=== PATIENT | female | born 1930 | race Caucasian/White ===

== ENCOUNTER 2019-11-10 03:23 | Emergency (ER) | payer MEDICARE ==
[~2019-11-10] VITALS: Ht 165.1 cm; Wt 50.0 kg
[2019-11-10] MEDS ORDERED: LABETALOL HCL 20MG/4ML CARPUJECT IV ONE (03:45)
[2019-11-10 04:17] LABS: BASOPHILS % 0.5 % (0.0-2.0); EOSINOPHILS % 1.1 % (0.0-5.0); HEMATOCRIT. 40.9 % (36.0-48.0); HEMOGLOBIN. 13.8 g/dL (12.0-16.0); LYMPHOCYTES % 29.7 % (20.0-50.0); MEAN CORPUSCULAR HEMOGLOBIN 30.4 pg (28.0-32.0); MEAN PLATELET VOLUME 8.2 fl (7.4-10.4); MONOCYTES % 5.4 % (2.0-8.0); NEUTROPHILS % 63.3 % (40.0-76.0); PLATELET 321 x1000/uL (130-400); RED BLOOD CELL COUNT 4.55 mill/uL (4.2-5.4); RED CELL DISTRIBUTION WIDTH 15.7 % (11.6-14.6)
[2019-11-10 04:23] LABS: CHLORIDE 104 mEq/L (98-107)
[2019-11-10 04:25] LABS: D-DIMER 2.11 mg/L FEU (<0.50); PARTIAL THROMBOPLASTIN TIME 25.6 sec (23.4-31.0); PROTHROMBIN TIME 10.4 sec (9.6-11.0)
[2019-11-10] MEDS: HYDRALAZINE 20MG/ML VIAL IV PRN (10:11)
[2019-11-10 10:27] LABS: BG BASE EXCESS 0.2 mmol/L (-2.0-2.0); BG CARBOXYHEMOGLOBIN 0.3 % (0.5-1.5); BG DEOXYHEMOGLOBIN 1.1 % (0.0-5.0); BG FRACTION INSPIRED OXYGEN 100; BG HCO3 ACT 28.6 mmol/L (22.0-26.0); BG METHEMOGLOBIN 1.4 % (0.0-1.5); BG OXYGEN SATURATION 98.9 % (92.0-98.5); BG OXYHEMOGLOBIN 97.2 % (94.0-97.0); BG PCO2 62.7 mmHg (35.0-45.0); BG PH 7.277 (7.350-7.450); BG PO2 217.7 mmHg (75.0-100.0); BG SAMPLE SITE RIGHT RADIAL; BG TOTAL HEMOGLOBIN 14.6 g/dL (12.0-18.0); BG VENT MODE MASK - NRB
[2019-11-10 13:11] LABS: BG BASE EXCESS 1.7 mmol/L (-2.0-2.0); BG BILEVEL POS AIRWAY PRESSURE 15/5; BG CARBOXYHEMOGLOBIN 0.2 % (0.5-1.5); BG DEOXYHEMOGLOBIN 1.4 % (0.0-5.0); BG FRACTION INSPIRED OXYGEN 40; BG HCO3 ACT 27.2 mmol/L (22.0-26.0); BG METHEMOGLOBIN 0.2 % (0.0-1.5); BG OXYGEN SATURATION 98.6 % (92.0-98.5); BG OXYHEMOGLOBIN 98.2 % (94.0-97.0); BG PCO2 46.1 mmHg (35.0-45.0); BG PH 7.388 (7.350-7.450); BG PO2 132.6 mmHg (75.0-100.0); BG SAMPLE SITE RIGHT RADIAL; BG TOTAL HEMOGLOBIN 13.3 g/dL (12.0-18.0); BG VENT MODE MASK - BIPAP; BG VENT RATE 18 set
[2019-11-10] MEDS ORDERED: HYDROCODONE/ACETAMINOPHEN 5/325MG TABLET PO PRN (15:00)
[2019-11-10] MEDS ORDERED: NA PHOS,M-B/NA PHOS,DI-BA ENEMA 118ML PR PRN (15:00)
[2019-11-10] MEDS ORDERED: HYDRALAZINE 20MG/ML VIAL IV PRN (15:00)
[2019-11-10] MEDS ORDERED: IPRATROPIUM/ALBUTEROL 0.5-3(2.5)MG/3ML NEB NEB PRN (15:00)
[2019-11-10] MEDS ORDERED: ONDANSETRON HCL 4MG/2ML INJ IV PRN (15:00)
[2019-11-10] MEDS ORDERED: CLONIDINE 0.1MG TABLET PO PRN (15:00)
[2019-11-10] MEDS ORDERED: SODIUM CHLORIDE 0.45% 1,000 ML IV SCH (15:00)
[2019-11-10] MEDS ORDERED: ACETAMINOPHEN 650MG SUPP PR PRN (15:00)
[2019-11-10] MEDS ORDERED: ACETAMINOPHEN 325MG TABLET PO PRN (15:00)
[2019-11-10] MEDS ORDERED: GUAIFENESIN 200MG/10ML SUGAR FREE UDC PO PRN (15:00)
[2019-11-10] MEDS ORDERED: LORAZEPAM 2MG/ML CPJ IV PRN (15:00)
[2019-11-10] MEDS ORDERED: DEXTROSE 50% WATER 50ML SYRINGE IV PRN (15:00)
[2019-11-10] MEDS ORDERED: DOCUSATE SODIUM 100MG CAPSULE PO PRN (15:00)
[2019-11-10] MEDS ORDERED: MAGNESIUM/ALUMINUM HYDROXIDE/SIMETHICONE 30ML UDC PO PRN (15:00)
[2019-11-10] MEDS ORDERED: DIPHENHYDRAMINE 50MG/ML VIAL IV PRN (15:00)
[2019-11-10] MEDS ORDERED: LORAZEPAM 0.5MG TABLET PO PRN (15:00)
[2019-11-10] MEDS ORDERED: MORPHINE SULFATE 2 MG/ML CPJ (NOT FOR IM USE) IV PRN (15:00)
[2019-11-10] MEDS ORDERED: ENOXAPARIN 60MG/0.6ML SYR SUBCUT SCH (16:00)
[2019-11-10] MEDS ORDERED: AZITHROMYCIN 500 MG in DEXT 5% WATER 250 ML IV NR (16:00)
[2019-11-10] MEDS: FAMOTIDINE 20MG/2ML VIAL IV SCH (16:06)
[2019-11-10] MEDS: CEFTRIAXONE 1 G PREMIX 50 ML IV SCH (16:06)
[2019-11-10 16:13] LABS: BG BASE EXCESS 1.1 mmol/L (-2.0-2.0); BG BILEVEL POS AIRWAY PRESSURE 15/8; BG DEOXYHEMOGLOBIN 1.2 % (0.0-5.0); BG FRACTION INSPIRED OXYGEN 40; BG HCO3 ACT 26.5 mmol/L (22.0-26.0); BG METHEMOGLOBIN 0.3 % (0.0-1.5); BG OXYGEN SATURATION 98.8 % (92.0-98.5); BG OXYHEMOGLOBIN 98.5 % (94.0-97.0); BG PCO2 45.2 mmHg (35.0-45.0); BG PH 7.386 (7.350-7.450); BG PO2 140.2 mmHg (75.0-100.0); BG SAMPLE SITE RIGHT RADIAL; BG TOTAL HEMOGLOBIN 12.8 g/dL (12.0-18.0); BG VENT MODE MASK - BIPAP
[2019-11-10] MEDS: INSULIN LISPRO 100 UNITS/ML SUBCUT SCH (17:00)
[2019-11-10] MEDS: BLOOD SUGAR DIAGNOSTIC STRIP TEST SCH ×2 (17:00→21:00)
[2019-11-10 17:05] LABS: CLARITY URINE CLEAR (CLEAR); COLOR URINE YELLOW (YELLOW); KETONES URINE NEGATIVE (NEGATIVE); LEUKOCYTE ESTERASE URINE TRACE (NEGATIVE); NITRITE URINE NEGATIVE (NEGATIVE); OCCULT BLOOD URINE 2+ (NEGATIVE); PROTEIN URINE 2+ (NEGATIVE); SPECIFIC GRAVITY URINE 1.019 (1.005-1.030); UROBILINOGEN URINE 0.2 E.U./dL (0.2-1.0)
[2019-11-10] MEDS: METHYLPREDNISOLONE SOD SUCC 40 MG/ML VIAL IV SCH (18:14)
[2019-11-11 01:09] LABS: CREATINE KINASE MB FRACTION 1.8 ng/mL (0.5-3.6)
[2019-11-11] MEDS: IPRATROPIUM/ALBUTEROL 0.5-3(2.5)MG/3ML NEB NEB SCH ×2 (02:40→08:13)
[2019-11-11 05:02] LABS: BASOPHILS % 0.2 % (0.0-2.0); HEMOGLOBIN. 11.4 g/dL (12.0-16.0); LYMPHOCYTES % 10.9 % (20.0-50.0); MEAN CORPUSCULAR HEMOGLOBIN 29.9 pg (28.0-32.0); MEAN CORPUSCULAR VOLUME 89.5 fL (81.0-99.0); MEAN PLATELET VOLUME 7.8 fl (7.4-10.4); MONOCYTES % 3.7 % (2.0-8.0); NEUTROPHILS % 85.2 % (40.0-76.0); PLATELET 233 x1000/uL (130-400); RED CELL DISTRIBUTION WIDTH 15.1 % (11.6-14.6)
[2019-11-11 05:06] LABS: CHLORIDE 104 mEq/L (98-107)
[2019-11-11 05:16] LABS: CREATINE KINASE 73 IU/L (26-192)
[2019-11-11 05:17] LABS: T4 FREE 0.86 ng/dL (0.76-1.46)
[2019-11-11 05:19] LABS: CREATINE KINASE MB FRACTION 1.9 ng/mL (0.5-3.6)
[2019-11-11] MEDS: METHYLPREDNISOLONE SOD SUCC 40 MG/ML VIAL IV SCH (05:58)
[2019-11-11] MEDS: BLOOD SUGAR DIAGNOSTIC STRIP TEST SCH (06:20)
[2019-11-11] MEDS: INSULIN LISPRO 100 UNITS/ML SUBCUT SCH (07:00)
[2019-11-11] MEDS: HYDRALAZINE 20MG/ML VIAL IV PRN (08:15)
[2019-11-11] MEDS ORDERED: AZITHROMYCIN 250 MG in DEXT 5% WATER 250 ML IV SCH (09:00)
[2019-11-11] MEDS ORDERED: ENOXAPARIN 30MG/0.3ML SYR SUBCUT SCH (09:00)
[2019-11-11] MEDS: FAMOTIDINE 20MG/2ML VIAL IV SCH (09:02)
[2019-11-11] MEDS: CEFTRIAXONE 1 G PREMIX 50 ML IV SCH (09:02)
[2019-11-11 09:49] LABS: BG BASE EXCESS -3.5 mmol/L (-2.0-2.0); BG CARBOXYHEMOGLOBIN 0.3 % (0.5-1.5); BG FRACTION INSPIRED OXYGEN 28; BG METHEMOGLOBIN 0.3 % (0.0-1.5); BG OXYHEMOGLOBIN 94.4 % (94.0-97.0); BG PCO2 31.2 mmHg (35.0-45.0); BG PH 7.425 (7.350-7.450); BG PO2 71.1 mmHg (75.0-100.0); BG SAMPLE SITE RIGHT BRACHIAL; BG VENT MODE NASAL CANNULA
[2019-11-11 11:00] VITALS: BP 142/55
== END 2019-11-11 11:13 | disposition left against medical advice (07) ==
LOC: ER 03:23 → UNDOADMIN 04:51 → MICUSO 04:51 → EDBEDREQ 05:27 → ER 11-11 11:13
DX: Z03.818 Encounter for observation for suspected exposure to other biological agents ruled out (principal); I16.1 Hypertensive emergency; I10 Essential (primary) hypertension; R09.02 Hypoxemia; Z86.73 Personal history of transient ischemic attack (TIA), and cerebral infarction without residual deficits
CPT/HCPCS: 36415; 36600; 71045; 80053; 81003; 82375; 82550; 82553; 82728; 82805; 82962; 83036; 83605; 83615; 83690; 83880; 84145; 84439; 84443; 84484; 85025; 85379; 85610; 85730; 86140; 86850; 86900; 86901; 87040; 87086; 87804; 93005; 96365; 96366; 96367; 96372; 96375; 96376; 99291; J0360; J0456; J0696; J1650; J2920; J3490; J7060; U0003